=== PATIENT | female | born 1980 | race American Indian/Alaskan Native ===

== ENCOUNTER 2018-08-27 11:07 | Emergency (ER) | payer MEDICAID ==
[2018-08-27 11:30] VITALS: BMI 20.5
[2018-08-27 11:35] VITALS: RESP 18; O2SAT 100
[2018-08-27] MEDS ORDERED: Dexamethasone 20 mg / 5 ml Inj IM STA (11:57)
[2018-08-27 12:17] LABS: INFLUENZA A B NEGATIVE FOR FLU A/B (NEGATIVE)
--- NOTE | 2018-08-27 12:57 | ED PDOC ---
Arrival/HPI - General Historian: Patient - History of Present Illness Narrative History of Present Illness (Text): 08/27/18 11:45 38 F with PMHx of section, presents with cc of sore throat, chills, sweats, and a headache x2 days. Pt reports she woke up sweating. Pt notes her "throat is killing her." Pt denies coughing, rhinorrhea, or any other complaints. Patient notes allergy to Medroxyprogesterone, from Depo-Provera. Time/Duration: Other (Patient notes onset as over the past 2 days ) Symptom Onset: Sudden Symptom Course: Unchanged Activities at Onset: Light <Baudilio Hernandez - Last Filed: 08/27/18 13:23> <Bryn Akhtar - Last Filed: 08/28/18 15:23> - General Chief Complaint: ENT Problem Time Seen by Provider: 08/27/18 11:11 Past Medical History - Provider Review Nursing Documentation Reviewed: Yes - Infectious Disease Hx of Infectious Diseases: None - Tetanus Immunization Tetanus Immunization: Up to Date - Past Medical History Past Medical History: No Previous - Psychiatric Hx Depression: No Hx Emotional Abuse: No Hx Physical Abuse: No Hx Substance Use: No - Surgical History Hx Section: Yes - Anesthesia Hx Anesthesia: Yes Hx Anesthesia Reactions: No Hx Malignant Hyperthermia: No - Suicidal Assessment Feels Threatened In Home Enviroment: No <Baudilio Hernandez - Last Filed: 08/27/18 13:23> Family/Social History - Physician Review Nursing Documentation Reviewed: Yes Family/Social History: No Known Family HX Smoking Status: Never Smoked Hx Alcohol Use: No Hx Substance Use: No Hx Substance Use Treatment: No <Baudilio Hernandez - Last Filed: 08/27/18 13:23> Allergies/Home Meds <Baudilio Hernandez - Last Filed: 08/27/18 13:23> <Bryn Akhtar - Last Filed: 08/28/18 15:23> Allergies/Adverse Reactions: Allergies medroxyprogesterone [From Depo-Provera] Allergy (Verified 08/27/18 11:30) RASH Review of Systems - Physician Review All systems were reviewed & negative as marked: Yes (All other systems negative except that noted in the HPI.) <Baudilio Hernandez - Last Filed: 08/27/18 13:23> Physical Exam - Physical Exam Narrative Physical Exam (Text): Gen: VS reviewed, alert, well developed, well nourished, nontoxic, mild distress Eye: EOMI, PERRL Pharynx: Bilateral swollen tonsils with white exudates on both tonsils. No uvula deviation. Mild redness to posterior pharynx. Neck: no JVD, supple, no adenopathy CV: regular rate, regular rhythm, no rubs,no murmur, S1, S2 Pulm: no distress, clear to auscultation, no wheeze, no rhonchi, breath sounds equal, no rales Abd: soft, nontender, no guarding, no rebound, no rigidity Ext: no edema Skin: good color, no rash, no cyanosis Psych: responds appropriately to questions, normal affect Neuro: oriented x3, CN2-12 intact grossly, motor intact, sensation intact Vital Signs Reviewed: Yes Vital Signs Temp Pulse Resp BP Pulse Ox 08/27/18 11:35 99.1 F 96 H 18 110/74 100 Temperature: Afebrile Blood Pressure: Normal Pulse: Tachycardic Respiratory Rate: Normal Appearance: Positive for: Well-Appearing, Non-Toxic Pain Distress: Mild Mental Status: Positive for: Alert and Oriented X 3 <Baudilio Hernandez - Last Filed: 08/27/18 13:23> Vital Signs Temp Pulse Resp BP Pulse Ox 08/27/18 13:29 98.3 F 86 18 108/68 100 08/27/18 11:35 99.1 F 96 H 18 110/74 100 <Bryn Akhtar - Last Filed: 08/28/18 15:23> Medical Decision Making ED Course and Treatment: 08/27/18 11:45 Impression: 38 year old female who presents to the Emergency department for sore throat, chills, sweats, and a headache Differential Diagnosis included but are not limited to: Plan: -- Decadron -- Lidocaine -- Toradol -- Throat culture -- POC Urine Test -- Influenza A B -- Rapid Strep Group A Antigen -- Reassess and disposition Prior Visits: Notes and results from previous visits were reviewed. Progress Notes: 08/27/18 13:23 patient feels better and is able to swallow more comfortably. clinical presentation consistent with viral pharyngitis. supportive care. 08/27/18 13:24 - Medication Orders Current Medication Orders: Discontinued Medications Dexamethasone (Decadron Inj) 10 mg IM STAT STA Stop: 08/27/18 11:58 Last Admin: 08/27/18 12:12 Dose: 10 mg IM Administration Charges Document 08/27/18 12:12 GMD (Rec: 08/27/18 12:12 GMD [id number]) Injection Site MAR Injection Site Left Deltoid Charges for Administration # of IM Administrations 1 Ketorolac Tromethamine (Toradol) 60 mg IM STAT STA Stop: 08/27/18 11:53 Last Admin: 08/27/18 12:12 Dose: 60 mg MAR Pain Assessment Document 08/27/18 12:12 GMD (Rec: 08/27/18 12:12 GMD [id number]) Pain Reassessment Is this a pain reassessment? No IM Administration Charges Document 08/27/18 12:12 GMD (Rec: 08/27/18 12:12 GMD [id number]) Injection Site MAR Injection Site Left Gluteus Yair Charges for Administration # of IM Administrations 1 Lidocaine HCl (Lidocaine 2% Viscous) 15 ml PO STAT STA Stop: 08/27/18 11:53 Last Admin: 08/27/18 12:12 Dose: 15 ml <Buadilio Hernandez - Last Filed: 08/27/18 13:23> ED Course and Treatment: 08/28/18 15:22 -I received a +strept culture from the lab [employer] WORK[employer]ANIE [employer], spoke to the patient, discussed about the result, amoxicillin 500mg po tid x 10 days eRX to the patient's desired pharmacy [address] [place] [address]. She stated that she will start the medication today. - Lab Interpretations Microbiology Results: Microbiology Results 08/27/18 11:45 Throat Group A Strep Throat Culture - Preliminary Streptococcus Pyogenes Grp A - Medication Orders Current Medication Orders: Discontinued Medications Dexamethasone (Decadron Inj) 10 mg IM STAT STA Stop: 08/27/18 11:58 Last Admin: 08/27/18 12:12 Dose: 10 mg IM Administration Charges Document 08/27/18 12:12 GMD (Rec: 08/27/18 12:12 GMD [id number]) Injection Site MAR Injection Site Left Deltoid Charges for Administration # of IM Administrations 1 Ketorolac Tromethamine (Toradol) 60 mg IM STAT STA Stop: 08/27/18 11:53 Last Admin: 08/27/18 12:12 Dose: 60 mg MAR Pain Assessment Document 08/27/18 12:12 GMD (Rec: 08/27/18 12:12 GMD [id number]) Pain Reassessment Is this a pain reassessment? No IM Administration Charges Document 08/27/18 12:12 GMD (Rec: 08/27/18 12:12 GMD [id number]) Injection Site MAR Injection Site Left Gluteus Yair Charges for Administration # of IM Administrations 1 Lidocaine HCl (Lidocaine 2% Viscous) 15 ml PO STAT STA Stop: 08/27/18 11:53 Last Admin: 08/27/18 12:12 Dose: 15 ml <Bryn Akhtar - Last Filed: 08/28/18 15:23> - Scribe Statement The provider has reviewed the documentation as recorded by the Scribe Vanessa Chengh All medical record entries made by the Scribe were at my direction and personally dictated by me. I have reviewed the chart and agree that the record accurately reflects my personal performance of the history, physical exam, medical decision making, and the department course for this patient. I have also personally directed, reviewed, and agree with the discharge instructions and disposition. <Baudilio Hernandez - Last Filed: 08/27/18 13:23> Disposition/Present on Arrival - Present on Arrival Any Indicators Present on Arrival: No History of DVT/PE: No History of Uncontrolled Diabetes: No Urinary Catheter: No History of Decub. Ulcer: No History Surgical Site Infection Following: None - Disposition Have Diagnosis and Disposition been Completed?: Yes Disposition Time: 13:26 Patient Plan: Discharge <Baudilio Hernandez - Last Filed: 08/27/18 13:23> <Bryn Akhtar - Last Filed: 08/28/18 15:23> - Disposition Diagnosis: Viral pharyngitis Disposition: HOME/ ROUTINE Condition: STABLE Discharge Instructions (ExitCare): Viral Pharyngitis Prescriptions: Amoxicillin [Amoxil 500 mg Cap] 500 mg PO TID #30 cap Ibuprofen [Motrin Tab] 600 mg PO QID #42 tab Lidocaine 2% Viscous 15 ml MM Q3H #1 bottle Prednisone [Deltasone] 20 mg PO DAILY 5 Days #10 tablet Referrals: FAMILY PROVIDER,NO [Primary Care Provider] - Follow up with primary Forms: [employer] (Welsh)
[2018-08-27 13:30] VITALS: BP 108/68; PULSE 86; TEMP 98.3
== END 2018-08-27 13:37 | disposition home or self-care (01) ==
LOC: ED 11:07
DX: J02.9 Acute pharyngitis, unspecified (principal)
CPT/HCPCS: 81025; 87070; 87430; 87804; 96372; 99284; J1100; J1885